=== PATIENT | female | born 1955 | race Caucasian/White ===

== ENCOUNTER 2017-03-25 15:41 | Inpatient (IN) | payer BC ==
[~2017-03-25] VITALS: Ht 154.9 cm; Wt 57.5 kg
[2017-03-25] MEDS ORDERED: ASPIRIN 81 MG TAB PO STA (19:04)
[2017-03-25] MEDS ORDERED: NITROGLYCERIN 2% 1 GM OINT PKT TD STA (19:04)
[2017-03-25 19:23] LABS: BASOPHILS % 0.7 % (0.0-2.0); EOSINOPHILS # 0.5 10^3/ul (0.0-0.5); EOSINOPHILS % 8.9 % (0.0-7.0); HEMATOCRIT 41.4 % (37.0-47.0); HEMOGLOBIN 13.8 g/dl (12.0-16.0); LYMPHOCYTES # 1.6 10^3/ul (0.8-2.9); LYMPHOCYTES % 29.6 % (15.0-51.0); MEAN CORPUSCULAR HEMOGLOBIN 28.3 pg (29.0-33.0); MEAN CORPUSCULAR HGB CONC 33.3 g/dl (32.0-37.0); MEAN PLATELET VOLUME 10.3 fl (7.4-10.4); MONOCYTE # 0.6 10^3/ul (0.3-0.9); MONOCYTES % 11.1 % (0.0-11.0); NEUTROPHIL # 2.7 10^3/ul (1.6-7.5); NEUTROPHILS % 49.5 % (39.0-77.0); PLATELET COUNT 278 10^3/UL (140-415); RED BLOOD COUNT 4.87 10^6/ul (4.20-5.40); RED CELL DISTRIBUTION WIDTH 12.7 % (11.5-14.5); WHITE BLOOD COUNT 5.4 10^3/ul (4.8-10.8)
--- NOTE | 2017-03-25 19:28 | RADRPT ---
PROCEDURE: Portable chest x-ray. CLINICAL INDICATION: Chest pain. TECHNIQUE: Portable AP view of the chest. COMPARISON: None. FINDINGS: No pulmonary edema or conolidation is identified. The cardiac silhouette is magnified. No pleural effusion is seen. There is no pneumothorax. IMPRESSION: 1. No evidence of acute cardiopulmonary disease. RPTAT: HTAR .Gerson Wiley MD, MD Date Time Electronically viewed and signed by .Gerson Wiley MD, on 03/25/2017 19:28 .R/
[2017-03-25] MEDS ORDERED: NITROGLYCERIN (SL) 0.4 MG TAB SL PRN ×2 (19:30→21:00)
[2017-03-25] MEDS ORDERED: CHOL100062 PO (19:37)
[2017-03-25] MEDS ORDERED: BENA20TA48 PO (19:37)
[2017-03-25] MEDS ORDERED: LEVO88TA3 PO (19:37)
[2017-03-25] MEDS ORDERED: HYDR-3010 PO (19:38)
[2017-03-25 19:41] LABS: CALCIUM 10.7 mg/dl (8.4-10.2); CREATININE 0.76 mg/dl (0.44-1.00); POTASSIUM 4.2 mmol/L (3.5-5.1)
[2017-03-25 19:55] LABS: TROPONIN-I 0.199 ng/ml (0.00-0.12)
[2017-03-25] MEDS ORDERED: ACETAMINOPHEN 325 MG TAB PO PRN ×2 (20:30→21:00)
[2017-03-25] MEDS ORDERED: ENOXAPARIN 40 MG/0.4 ML SYG SC ONE (20:30)
[2017-03-25] MEDS ORDERED: ONDANSETRON 4 MG INJ IV PRN ×2 (20:30→21:00)
[2017-03-25 21:00] VITALS: TEMP 97.4
[2017-03-25] MEDS ORDERED: MAGNESIUM HYDROXIDE 30ML CUP PO PRN (21:00)
[2017-03-25] MEDS ORDERED: DOCUSATE SODIUM 100 MG CAP PO PRN (21:00)
[2017-03-25] MEDS ORDERED: BISACODYL 10 MG SUPP PR PRN (21:00)
[2017-03-25] MEDS ORDERED: HYDROCODONE/APAP (5/325) TAB PO PRN ×2 (21:00)
[2017-03-25] MEDS ORDERED: morphine 2 MG INJ IV PRN (21:00)
[2017-03-25] MEDS ORDERED: hydrOXYzine HCL 10 MG TAB PO PRN (21:00)
[2017-03-25] MEDS ORDERED: NACL 0.9% 3 ML SYG IV SCH (21:00)
--- NOTE | 2017-03-25 21:08 | ERD ---
ER Documentation Chief Complaint Chief Complaint CHEST PAIN, ONSET 1 WEEK, SENT BY PMD FOR EVAL HPI Patient is a 61-year-old female with hypertension who presents with chest pain. The patient was sent by Dr. Diehl for chest pain and admission. The patient has had 1 week of shortness of breath with exertional chest pain. Dr. Diehl was concerned for acute coronary syndrome per his note. The patient has left- sided chest pain which is constant in nature. She says when she walks upstairs "the pressure is too hard" and she has to catch her breath. She has had no treatment yet today. ROS All systems reviewed and are negative except as per history of present illness. Medications Home Meds Reported Medications Hydroxyzine Hcl* (Hydroxyzine Hcl*) 10 Mg Tablet, 10 MG PO QHS Y for ITCHING, # 30 TAB 03/25/17 Cholecalciferol* (Vitamin D3*) 1,000 Unit Tablet, 1000 UNIT PO DAILY, TAB 03/25/17 Benazepril Hcl* (Benazepril Hcl*) 20 Mg Tablet, 20 MG PO DAILY, #30 TAB 03/25/17 Levothyroxine Sodium* (Levothyroxine Sodium*) 88 Mcg Tablet, 88 MCG PO BEFORE BREAKFAST, #30 TAB 03/25/17 Allergies Allergies: Coded Allergies: ibuprofen (Verified Allergy, Unknown, 03/25/17) PMhx/Soc Hx Neurological Disorder: No Hx Respiratory Disorders: No Hx Cardiac Disorders: Yes (htn, hyperlipidemia ) Hx Psychiatric Problems: No Hx Miscellaneous Medical Probl: No Hx Alcohol Use: No Hx Substance Use: No Hx Tobacco Use: Yes Smoking Status: Never smoker FmHx Family History: No coronary disease Physical Exam Vitals Vital Signs Date Time Temp Pulse Resp B/P Pulse Ox O2 Delivery O2 Flow Rate FiO2 03/25/17 19:28 98.4 89 19 136/82 98 Room Air 03/25/17 19:28 Nasal Cannula 03/25/17 15:46 98.4 67 17 160/89 98 Physical Exam Const: No acute distress Head: Atraumatic Eyes: Normal Conjunctiva ENT: Normal External Ears, Nose and Mouth. Neck: Full range of motion..~ No meningismus. Resp: Clear to auscultation bilaterally Cardio: Regular rate and rhythm, no murmurs Abd: Soft, non tender, non distended. Normal bowel sounds Skin: No petechiae or rashes Back: No midline or flank tenderness Ext: No cyanosis, or edema Neur: Awake and alert Psych: Normal Mood and Affect Result Diagram: 03/25/17191303/25/171913 Results 24 hrs Laboratory Tests Test 03/25/17 19:14 White Blood Count 5.410^3/ul Red Blood Count 4.8710^6/ul Hemoglobin 13.8g/dl Hematocrit 41.4% Mean Corpuscular Volume 85.0fl Mean Corpuscular Hemoglobin 28.3pg Mean Corpuscular Hemoglobin Concent 33.3g/dl Red Cell Distribution Width 12.7% Platelet Count 84428^3/UL Mean Platelet Volume 10.3fl Neutrophils % 49.5% Lymphocytes % 29.6% Monocytes % 11.1% Eosinophils % 8.9% Basophils % 0.7% Nucleated Red Blood Cells % 0.0/100WBC Neutrophils # 2.710^3/ul Lymphocytes # 1.610^3/ul Monocytes # 0.610^3/ul Eosinophils # 0.510^3/ul Basophils # 0.010^3/ul Nucleated Red Blood Cells # 0.010^3/ul Sodium Level 142mmol/L Potassium Level 4.2mmol/L Chloride Level 105mmol/L Carbon Dioxide Level 26mmol/L Anion Gap 15 Blood Urea Nitrogen 17mg/dl Creatinine 0.76mg/dl Glucose Level 114mg/dl Calcium Level 10.7mg/dl Troponin I 0.199ng/ml Current Medications Medications (Trade) Dose Ordered Sig/Aida Route PRN Reason Start Time Stop Time Status Last Admin Dose Admin Aspirin (Aspirin) 162 mg ONCE STAT PO 03/25/17 19:04 03/25/17 19:05 DC 03/25/17 19:42 Nitroglycerin (Nitroglycerin 2% Oint) 1 inch ONCE STAT TD 03/25/17 19:04 03/25/17 19:05 DC 03/25/17 19:44 Nitroglycerin (Nitroglycerin (Sl Tab) 0.4 Mg) 1 tab Q5M UP TO 3 DOSES PRN SL CHEST PAIN 03/25/17 19:30 03/25/17 20:40 DC 03/25/17 19:44 Enoxaparin Sodium (Lovenox) 60 mg ONCE ONCE SC 03/25/17 20:30 12/5/17 20:31 DC 03/25/17 20:24 Ondansetron HCl (Zofran Inj) 4 mg ER BRIDGE PRN IV NAUSEA AND/OR VOMITING 03/25/17 20:30 03/25/17 20:39 DC Acetaminophen (Tylenol Tab) 650 mg ER BRIDGE PRN PO MILD PAIN/FEVER 03/25/17 20:30 03/25/17 20:40 DC IV Flush (NS 3 ml) 3 ml PER PROTOCOL IV 03/25/17 21:00 Ondansetron HCl (Zofran Inj) 4 mg Q6H PRN IV NAUSEA AND/OR VOMITING 03/25/17 21:00 Aspirin (Aspirin) 81 mg DAILY PO 03/26/17 09:00 Nitroglycerin (Nitroglycerin (Sl Tab) 0.4 Mg) 1 tab Q5M PRN SL CHEST PAIN 03/25/17 21:00 Acetaminophen (Tylenol Tab) 650 mg Q6H PRN PO PAIN LEVEL 1-3 OR FEVER 03/25/17 21:00 Acetaminophen/ Hydrocodone Bitart ([place] (5/325)) 1 tab Q6H PRN PO PAIN LEVEL 4-6 03/25/17 21:00 Acetaminophen/ Hydrocodone Bitart ([place] (5/325)) 2 tab Q6H PRN PO PAIN LEVEL 7-10 03/25/17 21:00 Morphine Sulfate (morphine) 2 mg Q4H PRN IV PAIN LEVEL 7-10 03/25/17 21:00 Docusate Sodium (Colace) 100 mg Q12H PRN PO CONSTIPATION 03/25/17 21:00 Magnesium Hydroxide (Milk Of Mag) 30 ml DAILY PRN PO CONSTIPATION 03/25/17 21:00 Bisacodyl (Dulcolax Supp) 10 mg DAILY PRN [place] CONSTIPATION 03/25/17 21:00 Famotidine (Pepcid) 20 mg Q12 PO 03/25/17 21:00 Carvedilol (Coreg) 3.125 mg BID PO 03/25/17 21:00 Benazepril HCl (Lotensin) 20 mg DAILY PO 03/26/17 09:00 Hydroxyzine HCl (Atarax) 10 mg QHS PRN PO ITCHING 03/25/17 21:00 Levothyroxine Sodium (Synthroid) 88 mcg BEFORE BREAKFAST PO 03/26/17 07:00 Procedures/MDM EKG #1 read by me: Rate/Rhythm: Regular rate and rhythm at a normal rate Intervals: Normal Impression: No evidence of ischemia or arrhythmia EKG #2 read by me: Rate/Rhythm: Regular rate and rhythm at a normal rate Intervals: Normal Impression: No evidence of ischemia or arrhythmia Chest x-ray negative for pneumonia or pneumothorax per radiology. Smoking Cessation Therapy: Pt. was lectured for greater than 3 minutes on the health risks of continued smoking and the benefits of cessation. Patient is a 61-year-old female who presents with chest pain. She has hypertension and is an occasional smoker. Her troponin is positive showing an NSTEMI. 2 EKGs did not show STEMI. The patient was given aspirin, nitroglycerin, and Lovenox. I spoke with Dr. Tejada for admission as the patient has [employer] insurance. She will be admitted to a telemetry inpatient bed. Dr. Tejada plans to contact Dr. Tate from cardiology and the patient would likely benefit from a cardiac catheterization. At this point I doubt pneumonia, pneumothorax, pulmonary embolism, or aortic dissection. Critical Care: Time: 35 minutes excluding all billable procedures. Treatments/Evaluations: Close monitoring and treatment of unstable vital signs, cardiorespiratory, and neurologic status, while maintaining tight balance of fluid, respiratory, and cardiac interventions. Departure Diagnosis: Primary Impression: NSTEMI (non-ST elevated myocardial infarction) Additional Impression: Chest pain Chest pain type: unspecified Qualified Code: R07.9 - Chest pain, unspecified type Condition: Serious MICHAEL ALONZO MD Mar 25, 2017 21:08
[2017-03-25] MEDS: FAMOTIDINE 20 MG TAB PO SCH (22:08)
[2017-03-25 23:00] VITALS: BP 123/80; PULSE 57; RESP 16; Ht 154.9 cm; Wt 57.5 kg
[2017-03-26] VITALS (40 sets, daily range): BP systolic 104–149; BP diastolic 64–106; PULSE 51–81; RESP 11–28
[2017-03-26 01:44] LABS: D-DIMER 545.47 ng/ml (<460)
[2017-03-26 03:14] LABS: CK-MB 1.21 ng/ml (0.0-2.4); TROPONIN-I 0.206 ng/ml (0.00-0.12)
[2017-03-26] MEDS: LEVOTHYROXINE 88 MCG TAB PO SCH (08:24)
[2017-03-26] MEDS: BENAZEPRIL 20 MG TAB PO SCH (08:25)
[2017-03-26] MEDS: FAMOTIDINE 20 MG TAB PO SCH ×2 (08:25→20:35)
[2017-03-26] MEDS ORDERED: ASPIRIN 81 MG TAB PO SCH (09:00)
[2017-03-26 09:35] LABS: ALBUMIN 3.9 g/dl (3.3-4.9); ALBUMIN/GLOBULIN RATIO 1.08; BILIRUBIN,INDIRECT 0.5 mg/dl (0-1.1); BILIRUBIN,TOTAL 0.5 mg/dl (0.2-1.3); CALCIUM 9.9 mg/dl (8.4-10.2); CHOL/HDL RATIO 5.3 RATIO; CREATININE 0.79 mg/dl (0.44-1.00); MAGNESIUM 1.9 mg/dl (1.7-2.5); POTASSIUM 4.1 mmol/L (3.5-5.1); TOTAL PROTEIN 7.5 g/dl (6.1-8.1)
[2017-03-26 09:39] LABS: CK-MB 0.97 ng/ml (0.0-2.4)
[2017-03-26 09:40] LABS: TROPONIN-I 0.17 ng/ml (0.00-0.12)
[2017-03-26] MEDS: SOD CHLORIDE 0.9% 1,000 ML IV SCH ×2 (10:59→20:30)
--- NOTE | 2017-03-26 11:00 | HP ---
Date/Time of Note Date/Time of Note DATE: 03/26/17 TIME: 10:17 Assessment/Plan VTE Prophylaxis VTE Prophylaxis Intervention: SCD's Lines/Catheters IV Catheter Type [facility]from [facility]): [facility] Urinary Cath still in place: No Assessment/Plan Assessment/Plan 61-year-old female with: 1. Exertional chest pressure and shortness of breath, significant decreased exercise tolerance over a period of 2 weeks and much more acutely over the past week. Cardiac enzymes slightly elevated, echocardiogram done, results pending, cardiology consulted. Also d-dimer slightly elevated, CT angiogram chest pending. Further recommendations from cardiology depending on results from CT angiogram and echocardiogram Continue current medications 2. Hypertension: Continue current medications, patient already on ITZ inhibitors, carvedilol has been added. 3. Hypothyroidism: Thyroid function testing pending, continue Synthroid Prophylaxis: We will resume Lovenox for DVT prophylaxis depending on CT angiogram results, Pepcid for GI prophylaxis Disposition: CT angiogram chest, cardiology consult, possible cardiac angiogram later this afternoon depending on CT angiogram results. HPI/ROS Admit Date/Time Admit Date/Time Mar 25, 2017 at 20:18 Hx of Present Illness Chief complaint: Chest pain, dyspnea on exertion History of presenting illness: This is a 61-year-old female with previous history of hypothyroidism and hypertension, very active at baseline able to walk at least 4 blocks with no rest who over the past 2 weeks has been having increased fatigue, decreased exercise tolerance and now over the past week severe dyspnea and chest pressure with exertion. Patient reports that 2 weeks ago she started noticing increasing fatigue with long walks, at first she was not that concerned about it, however over the past week she has been having severe dyspnea on exertion and chest pressure after walking for half a block. She usually is able to easily walk 4 blocks at least. She denies any dizziness , nausea, vomiting, diaphoresis. She denies any previous history of cardiac disease. She denies any lower extremity edema or lower extremity cramping. Again she is very active at baseline. In the emergency room, she is found to have borderline elevated troponins, EKG with nonspecific changes. D-dimer slightly elevated above 500. I discussed the case with cardiology briefly, she did get a dose of Lovenox last night, were holding off for now, CT angiogram of the chest is pending. 2D echocardiogram has been done and depending on the echocardiogram findings and if CT angiogram is negative we may proceed with cardiac angiogram later this afternoon. Patient remains hemodynamically stable, blood pressure is controlled. ROS Constitutional: fatigue Eyes: no complaints ENT: no complaints Respiratory: other (Dyspnea on exertion) Cardiovascular: chest pain (Chest pressure with exertion), other (Dyspnea on exertion) Gastrointestinal: no complaints Genitourinary: no complaints Musculoskeletal: no complaints Skin: no complaints Neurologic: no complaints Endocrine: no complaints Lymphatic: no complaints PMH/Family/Social Past Medical History Hypertension Hypothyroidism Past Surgical History Status post hysterectomy 20 years ago Status post cataract surgery 2 years ago Family History Significant Family History: no pertinent family hx Social History Alcohol Use: none Smoking Status: Current some day smoker (She smokes approximately twice a year when in [place] and would smoke 2-3 cigarettes at that time.) Drug Use: none Exam/Review of Systems Vital Signs Vitals Vital Signs Date Time Temp Pulse Resp B/P Pulse Ox O2 Delivery O2 Flow Rate FiO2 03/26/17 08:10 56 03/26/17 08:10 Nasal Cannula 2.0 03/26/17 07:40 97.8 20 116/70 98 Exam Constitutional: alert, oriented, well developed Respiratory: clear to auscultation, normal air movement Cardiovascular: nl pulses, regular rate and rhythm Gastrointestinal: non-tender, soft Musculoskeletal: nl extremities to inspection Extremities: normal pulses, other (No edema, clubbing or cyanosis) Neurological: 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 intact, nl mental status, nl speech, nl strength Labs Result Diagram: 03/25/17191303/26/17 0810 Medications Medications Current Medications Ondansetron HCl (Zofran Inj) 4 mg Q6H PRN IV NAUSEA AND/OR VOMITING; Start 03/25/17 at 21:00 Aspirin (Aspirin) 81 mg DAILY PO ; Start 03/26/17 at 09:00 Nitroglycerin (Nitroglycerin (Sl Tab) 0.4 Mg) 1 tab Q5M PRN SL CHEST PAIN; Start 03/25/17 at 21:00 Acetaminophen (Tylenol Tab) 650 mg Q6H PRN PO PAIN LEVEL 1-3 OR FEVER; Start 03/25/17 at 21:00 Acetaminophen/ Hydrocodone Bitart ([place] (5/325)) 1 tab Q6H PRN PO PAIN LEVEL 4 -6; Start 03/25/17 at 21:00 Acetaminophen/ Hydrocodone Bitart ([place] (5/325)) 2 tab Q6H PRN PO PAIN LEVEL 7 -10; Start 03/25/17 at 21:00 Morphine Sulfate (morphine) 2 mg Q4H PRN IV PAIN LEVEL 7-10; Start 03/25/17 at 21:00 Docusate Sodium (Colace) 100 mg Q12H PRN PO CONSTIPATION; Start 03/25/17 at 21: 00 Magnesium Hydroxide (Milk Of Mag) 30 ml DAILY PRN PO CONSTIPATION; Start at 21:00 Bisacodyl (Dulcolax Supp) 10 mg DAILY PRN [place] CONSTIPATION; Start 03/25/17 at 21 :00 Famotidine (Pepcid) 20 mg Q12 PO Last administered on 03/26/17 08:25; Admin Dose 20 MG; Start 03/25/17 at 21:00 Carvedilol (Coreg) 3.125 mg BID PO ; Start 03/25/17 at 21:00 Benazepril HCl (Lotensin) 20 mg DAILY PO Last administered on 03/26/17 08:25; Admin Dose 20 MG; Start 03/26/17 at 09:00 Hydroxyzine HCl (Atarax) 10 mg QHS PRN PO ITCHING; Start 03/25/17 at 21:00 Procedures Procedures PROCEDURE: Portable chest x-ray. CLINICAL INDICATION: Chest pain. TECHNIQUE: Portable AP view of the chest. COMPARISON: None. FINDINGS: No pulmonary edema or conolidation is identified. The cardiac silhouette is magnified. No pleural effusion is seen. There is no pneumothorax. IMPRESSION: 1. No evidence of acute cardiopulmonary disease. RPTAT: HTAR .Gerson Wiley MD, MD Date Time Electronically viewed and signed by .Gerson Wiley MD, MD on 03/25/2017 19:28 EKG: Shows normal sinus rhythm, nonspecific ST abnormalities MADAN TYLER Mar 26, 2017 10:27
[2017-03-26] MEDS ORDERED: IOHEXOL 350MG/ML 50 ML BTL ONE (11:06)
[2017-03-26] MEDS ORDERED: SOD CHLORIDE 0.9% 100 ML ONE (11:06)
[2017-03-26] MEDS ORDERED: IOHEXOL 100 ML ONE (11:06)
--- NOTE | 2017-03-26 11:27 | RADRPT ---
Echocardiogram Report Patient Name: EDUARDO MCINTYRE Gender: Female Date: 1955 Study Date: 26-Mar-2017 Associate Professor Of Library Science: Scott Desai [facility] Location: 526 Ref. Physician: JOE TYLER Quality: Good Procedures: Transthoracic echocardiogram with complete 2D, M-Mode, and doppler examination. Indications: Elevated troponin. Chest Pain. 2D/M Mode Doppler Measurement Value Normal Ranges Measurement Value Normal Ranges LVIDd 2D 3.8 3.5 - 5.6 cm AV Peak Michael 1.7 m/sec LVIDs 2D 2.2 2.1 - 4.1 cm AV Peak PG 11.2 mmHg LVPWd 2D 0.9 0.6 - 1.1 cm LVOT Peak Michael 1.1 m/sec IVSd 2D 0.9 0.6 - 1.1 cm LVOT Peak PG 4.5 mmHg AoR Diam 2D 2.9 2.0 - 3.7 cm MV E Peak Michael 0.7 m/sec EDV 2D 62.4 cm3 MV A Peak Michael 0.9 m/sec ESV 2D 10.1 cm3 MV E/A 0.8 LA Dimen 2D 2.4 2.3 - 4.0 cm MV Decel Time 226 msec MV Decel [place] 3 MV E/A 0.8 Findings Left Ventricle: Normal left ventricular systolic function. Normal left ventricular cavity size. Normal left ventricular wall thickness. Ejection fraction is visually estimated at 60 %. Tissue Doppler/Mitral Doppler indices are consistent with impaired relaxation (Stage I diastolic dysfunction). Right Ventricle: Normal right ventricular size. Normal right ventricular systolic function. Left Atrium: The left atrium is normal in size. Right Atrium: The right atrium is normal in size. Mitral Valve: Mitral valve leaflets appear mildly thickened. Mild mitral annular calcification. Trace mitral regurgitation. Aortic Valve: Normal appearance of the aortic valve. No significant aortic stenosis or insufficiency. Tricuspid Valve: Normal appearance and function of the tricuspid valve with trace physiologic regurgitation. Pulmonic Valve: Pulmonic valve not well visualized. Pericardium: Normal pericardium with no significant pericardial effusion. Aorta: Normal aortic root. IVC: Normal size and normal respiratory collapse consistent with normal right atrial pressure. Conclusions Normal left ventricular systolic function. Normal left ventricular cavity size. Normal left ventricular wall thickness. Ejection fraction is visually estimated at 60 %. Tissue Doppler/Mitral Doppler indices are consistent with impaired relaxation (Stage I diastolic dysfunction). Normal right ventricular size. Normal right ventricular systolic function. The left atrium is normal in size. The right atrium is normal in size. No significant valvular stenosis or regurgitation seen. Normal pericardium with no significant pericardial effusion. Electronically Signed By: Ridge Tate 26-Mar-2017 11:26:26 -0800 Patient Name: EDUARDO MCINTYRE Study Date: 26-Mar-2017 [id number]
[2017-03-26] MEDS ORDERED: NITROGLYCERIN (IC) 100 MCG/ML INJ ONE (11:46)
[2017-03-26] MEDS ORDERED: VERAPAMIL 5 MG INJ ONE (11:46)
[2017-03-26] MEDS ORDERED: LIDOCAINE 1% (MDV) 20 ML INJ ONE (11:46)
[2017-03-26] MEDS ORDERED: MIDAZOLAM 1 MG/ML 2 ML INJ ONE (11:46)
[2017-03-26] MEDS ORDERED: FENTAnyl 50 MCG/ML VIAL ONE (11:46)
[2017-03-26] MEDS ORDERED: HEPARIN 1000 UNITS/ML 10 ML INJ ONE (11:47)
--- NOTE | 2017-03-26 12:07 | RADRPT ---
PROCEDURE: CTA Chest and pulmonary angiogram. CLINICAL INDICATION: Chest pain and shortness of breath. TECHNIQUE: CT scan of the chest and CT pulmonary angiogram was performed on a multidetector high-r esolution CT scanner. High-resolution thin slice coronal and sagittal imaging was obtained from the axial source images. 3-D volumetric rendered post processing was performed as well. The patient w as examined following the uncomplicated intravenous administration of 100 cc Omnipaque-300. The levi ges were reviewed on a PACS workstation. The total exam CTDI equals 35 mGy, and the total exam DLP e quals 301.5 mGy-cm. One or more of the following dose reduction techniques were used: Automated exposure control. Adjustment of the mA and/or kV according to patient size. Use of iterative reconstruction technique. DICOM images are available. COMPARISON: No priors for comparison FINDINGS: CT chest: The trachea is midline. The thyroid gland is unremarkable. No significant axillary lymphadenopathy. No significant mediastinal or hilar lymphadenopathy. The aorta is within normal limits. 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 The pulmonary arterial trunk is normal size. No evidence of acute pulmonary embo li. The heart size is mildly enlarged. There is no significant pericardial effusion. The lungs are clear. No focal air space disease/consolidation. Pleural effusions. Airways are patent . Mild emphysematous changes are noted. No significant pulmonary nodules. The visualized upper abdominal organs appear to be within normal limits. The visualized osseous structures demonstrate mild degenerative changes of the spine. IMPRESSION: 1. No evidence of acute pulmonary emboli. No evidence of aortic aneurysm or dissection. 2. The lungs are clear. No focal air space disease/consolidation. No evidence of pleural effusions. 3. Incidental identification of a aberrant right subclavian artery, which courses posterior to the e sophagus. Findings were discussed with Dr. Tate @ 12:04 PM on 03/26/17 RPTAT: AARR Physician Adam Date Time Electronically viewed and signed by Physician Adam on 03/26/2017 12:06 JL/
[2017-03-26] MEDS ORDERED: TICAGRELOR 90 MG TABLET ONE (13:26)
[2017-03-26] MEDS ORDERED: SOD CHLORIDE 0.9% 1,000 ML IV SCH (13:50)
[2017-03-26] MEDS ORDERED: BIVALIRUDIN 250MG /NS 50 ML 100 ML IVPB ONE (13:54)
--- NOTE | 2017-03-26 14:03 | OPR ---
Date/Time of Note Date/Time of Note DATE: 03/26/17 TIME: 13:52 Operative Report Procedure Date: Mar 26, 2017 Preoperative Diagnosis Myocardial infarction Postoperative Diagnosis Obstructive coronary artery disease Myocardial infarction Operation/Procedure Performed Left heart catheterization Right and left coronary angiogram Interpretation and supervision of right left coronary angiogram Left ventricular pressure measurements Complex PCI of the diagonal with bifurcation stenting of superior and inferior branch of diagonal 1 with 2.25 x 12 mm Synergy drug-eluting stents 2 with kissing balloon post dilation Conscious sedation Left radial artery approach Surgeon see signature line Recreational Leader None Anesthesia Type: other (Conscious sedation) Estimated Blood Loss: minimal Transfusion none Specimen None Grafts/Implants Synergy drug-eluting stents 2, both 2.25 x 12 mm size Complications none Procedure Description Findings Hemodynamics LV pressure 127/-14 with EDP of 5 Aortic pressure 126/67 Coronary findings Left main is a medium to large caliber vessel with no significant disease Circumflex is a small to medium caliber vessel with no significant disease LAD is a medium caliber vessel with proximal to mid 30% stenosis, distal 20% stenosis. First diagonal bifurcates into a superior and inferior branch. Superior branch is a medium caliber vessel with 99% stenosis from ostial to proximal, inferior branch with proximal 80% stenosis. RCA is a medium caliber vessel dominant with mid 20% stenosis and distal 30% stenosis Description of procedure Patient brought to the [facility] after informed consent. Left radial access was obtained and a 5/6 Haitian standard sheath was placed in left radial artery. Initially entire catheter was used but could not engage the coronaries well. We next switched to a 5 Haitian JL4 catheter engage left main and injury and was performed. We then used a 5 Haitian JR4 catheter engage the RCA and angiogram was performed. The left ventricle was entered and pressure measurements were obtained as well as pullback. Given the stenosis in the diagonal, we switched to a 6 Haitian XB LAD 4 guide and engaged left main. There was evidence of stenosis into branches of a medium caliber diagonal. Angiomax was used for anticoagulation. With moderate difficulty, we used to run through wires, one in the superior diagonal branch and one in the inferior diagonal branch. Of the superior diagonal branch, predilation was performed with a 2.0 balloon. There was still recoil post angioplasty. Given the bifurcation lesion, we opted to stent both branches. A 2.25 x 12 mm Synergy drug-eluting stent was taken in the superior diagonal branch and then a 2.25 x 12 mm Synergy drug- eluting stent in the inferior diagonal branch. The inferior diagonal branch stent was deployed and the STS system was removed. We next stented the superior branch, bringing the stent out of the ostium into the main diagonal. We next went back in with post dilation balloons and performed kissing balloon inflations at the proximal/ostial portions of both branches. There was an excellent angiographic result with ALLYSON-3 flow with no evidence of dissection. All catheters and wires removed. There is no immediate complications. This is a complex case with bifurcation stenting, multiple wires and balloon inflations as well as post kissing balloon dilations. Recommendations Dual antiplatelet therapy for minimum of 1 year to maintain stent patency. Ridge Tate DO Mar 26, 2017 14:03
--- NOTE | 2017-03-26 14:08 | CONS ---
Date/Time of Note Date/Time of Note DATE: 03/26/17 TIME: 14:04 Assessment/Plan Assessment/Plan Additional Assessment/Plan Non-ST elevation ND Obstructive coronary artery disease status post bifurcation stenting of the diagonal with drug-eluting stents Preserved ejection fraction Hypertension Tobacco use -Patient status post cardiac catheterization with severe stenosis in diagonal status post bifurcation stenting with 2 drug-eluting stents. Given patient with myocardial infarction as well as bifurcation setting, would continue on aspirin and Brilinta for minimum of 1 year to maintain stent patency, statin therapy as able to tolerate. Beta-naomy as heart rate and blood pressure permits. Consultation Date/Type/Reason Admit Date/Time Mar 25, 2017 at 20:18 Type of Consultation: cv Reason for Consultation Chest pain Hx of Present Illness This is a 61-year-old female who presents with off-and-on chest discomfort and shortness of breath over the past 2 weeks which is usually exacerbated by activity. Symptoms are chest pain and pressure associated with shortness of breath. No dizziness, palpitations or lightheadedness. Patient was sent to the emergency room by her primary physician. Troponins have been elevated and for this reason cardiology consultation was requested. At the current time, she denies any chest discomfort. She denies any cough, abdominal pain. 12 point review of systems was performed with all pertinent positives and negatives mentioned above and all else is negative Past Medical History Medical History: hypertension, hypothyroid Family History Significant Family History: no pertinent family hx Social History Alcohol Use: none Smoking Status: Current some day smoker (She smokes approximately twice a year when in [place] and would smoke 2-3 cigarettes at that time.) Drug Use: none Exam/Review of Systems Vital Signs Vitals Vital Signs Date Time Temp Pulse Resp B/P Pulse Ox O2 Delivery O2 Flow Rate FiO2 03/26/17 12:01 55 03/26/17 08:10 Nasal Cannula 2.0 03/26/17 07:40 97.8 20 116/70 98 Exam No apparent distress Constitutional: alert, oriented, well developed Head: normocephalic Respiratory: other (Coarse breath sounds bilaterally, no wheezing) Cardiovascular: other (S1-S2 heard), regular rate and rhythm Gastrointestinal: bowel sounds, non-tender, soft Extremities: other (No edema) Results Result Diagram: 03/25/17 19103/26/17 0827 Results 24 hrs Laboratory Tests Test 03/25/17:14 03/26/17 01:08 03/26/17 08:27 White Blood Count 5.4 Red Blood Count 4.87 Hemoglobin 13.8 Hematocrit 41.4 Mean Corpuscular Volume 85.0 Mean Corpuscular Hemoglobin 28.3 L Mean Corpuscular Hemoglobin Concent 33.3 Red Cell Distribution Width 12.7 Platelet Count 278 Mean Platelet Volume 10.3 Neutrophils % 49.5 Lymphocytes % 29.6 Monocytes % 11.1 H Eosinophils % 8.9 H Basophils % 0.7 Nucleated Red Blood Cells % 0.0 Neutrophils # 2.7 Lymphocytes # 1.6 Monocytes # 0.6 Eosinophils # 0.5 Basophils # 0.0 Nucleated Red Blood Cells # 0.0 Sodium Level 142 141 Potassium Level 4.2 4.1 Chloride Level 105 108 Carbon Dioxide Level 26 25 Anion Gap 15 12 Blood Urea Nitrogen 17 18 Creatinine 0.76 0.79 Glucose Level 114 107 Calcium Level 10.7 H 9.9 Troponin I 0.199 *H 0.206 *H 0.170 *H D-Dimer 545.47 H D-Dimer Comment Creatine Kinase 61 54 Creatine Kinase Index 2.0 1.8 Creatinine Kinase MB (Mass) 1.21 0.97 Magnesium Level 1.9 Total Bilirubin 0.5 Direct Bilirubin 0.00 Indirect Bilirubin 0.5 Aspartate Amino Transf (AST/SGOT) 28 Alanine Aminotransferase (ALT/SGPT) 40 Alkaline Phosphatase 78 Total Protein 7.5 Albumin 3.9 Globulin 3.60 H Albumin/Globulin Ratio 1.08 Triglycerides Level 176 H Cholesterol Level 204 H LDL Cholesterol, Calculated 131 HDL Cholesterol 38 Cholesterol/HDL Ratio 5.3 Thyroid Stimulating Hormone (TSH) 0.104 L Free Thyroxine 1.40 Medications Medications Current Medications Ondansetron HCl (Zofran Inj) 4 mg Q6H PRN IV NAUSEA AND/OR VOMITING; Start 03/25/17 at 21:00 Aspirin (Aspirin) 81 mg DAILY PO ; Start 03/26/17 at 09:00 Nitroglycerin (Nitroglycerin (Sl Tab) 0.4 Mg) 1 tab Q5M PRN SL CHEST PAIN; Start 03/25/17 at 21:00 Acetaminophen (Tylenol Tab) 650 mg Q6H PRN PO PAIN LEVEL 1-3 OR FEVER; Start 03/25/17 at 21:00 Acetaminophen/ Hydrocodone Bitart ([place] (5/325)) 1 tab Q6H PRN PO PAIN LEVEL 4 -6; Start 03/25/17 at 21:00 Acetaminophen/ Hydrocodone Bitart ([place] (5/325)) 2 tab Q6H PRN PO PAIN LEVEL 7 -10; Start 03/25/17 at 21:00 Morphine Sulfate (morphine) 2 mg Q4H PRN IV PAIN LEVEL 7-10; Start 03/25/17 at 21:00 Docusate Sodium (Colace) 100 mg Q12H PRN PO CONSTIPATION; Start 03/25/17 at 21: 00 Magnesium Hydroxide (Milk Of Mag) 30 ml DAILY PRN PO CONSTIPATION; Start at 21:00 Bisacodyl (Dulcolax Supp) 10 mg DAILY PRN [place] CONSTIPATION; Start 03/25/17 at 21 :00 Famotidine (Pepcid) 20 mg Q12 PO Last administered on 03/26/17 08:25; Admin Dose 20 MG; Start 03/25/17 at 21:00 Carvedilol (Coreg) 3.125 mg BID PO ; Start 03/25/17 at 21:00 Benazepril HCl (Lotensin) 20 mg DAILY PO Last administered on 03/26/17 08:25; Admin Dose 20 MG; Start 03/26/17 at 09:00 Hydroxyzine HCl 10 mg 10 mg QHS PRN PO ITCHING; Start 03/25/17 at 21:00 Sodium Chloride (NS) 1,000 ml @ 100 mls/hr Q10H IV Last administered on 10:59; Admin Dose 100 MLS/HR; Start 03/26/17 at 10:30 Procedures Procedures ECG demonstrates sinus rhythm, normal QRS duration, nonspecific ST abnormalities Ridge Tate DO Mar 26, 2017 14:08
[2017-03-26] MEDS ORDERED: ATORVASTATIN 80 MG TAB PO ONE (14:30)
[2017-03-26] MEDS: BIVALIRUDIN 250MG /NS 50 ML 50 ML IV SCH ×2 (17:12→20:40)
[2017-03-26] MEDS: TICAGRELOR 90 MG TABLET PO SCH (20:34)
[2017-03-27] VITALS (18 sets, daily range): BP systolic 91–120; BP diastolic 59–85; PULSE 57–90; RESP 10–22
[2017-03-27] MEDS: SOD CHLORIDE 0.9% 1,000 ML IV SCH (01:22)
[2017-03-27 06:02] LABS: BASOPHILS % 0.7 % (0.0-2.0); EOSINOPHILS # 0.3 10^3/ul (0.0-0.5); HEMATOCRIT 37.1 % (37.0-47.0); HEMOGLOBIN 12.3 g/dl (12.0-16.0); LYMPHOCYTES # 1.1 10^3/ul (0.8-2.9); LYMPHOCYTES % 17.9 % (15.0-51.0); MEAN CORPUSCULAR HEMOGLOBIN 28.1 pg (29.0-33.0); MEAN CORPUSCULAR HGB CONC 33.2 g/dl (32.0-37.0); MEAN CORPUSCULAR VOLUME 84.9 fl (82.0-101.0); MEAN PLATELET VOLUME 10.9 fl (7.4-10.4); MONOCYTE # 0.7 10^3/ul (0.3-0.9); MONOCYTES % 11.2 % (0.0-11.0); NEUTROPHIL # 3.9 10^3/ul (1.6-7.5); PLATELET COUNT 255 10^3/UL (140-415); RED BLOOD COUNT 4.37 10^6/ul (4.20-5.40); RED CELL DISTRIBUTION WIDTH 12.7 % (11.5-14.5)
[2017-03-27] MEDS: LEVOTHYROXINE 88 MCG TAB PO SCH (06:24)
[2017-03-27 06:30] LABS: CALCIUM 9.5 mg/dl (8.4-10.2); CREATININE 0.85 mg/dl (0.44-1.00); POTASSIUM 4.4 mmol/L (3.5-5.1)
[2017-03-27] MEDS: FAMOTIDINE 20 MG TAB PO SCH (08:41)
[2017-03-27] MEDS: BENAZEPRIL 20 MG TAB PO SCH (08:43)
[2017-03-27] MEDS: TICAGRELOR 90 MG TABLET PO SCH (08:46)
[2017-03-27] MEDS ORDERED: ASPIRIN (EC) 81 MG TAB PO SCH (09:00)
--- NOTE | 2017-03-27 10:09 | PN ---
Date/Time of Note Date/Time of Note DATE: 03/27/17 TIME: 09:49 Assessment/Plan VTE Prophylaxis VTE Prophylaxis Intervention: SCD's Lines/Catheters IV Catheter Type (from Nrs): Peripheral IV Urinary Cath still in place: No Assessment/Plan Assessment/Plan 61-year-old female with: 1. CAD, s/p angio yesterday and PCI of diagonal with 2 stents placed Denies chest pressure or shortness of breath this AM No arrhythmia reported on Tele If Ok with Cardio, planning to d/c home today with outpatient follow up with cardiology Echocardiogram wnl No BB currently due to mild bradycardia 2. Hypertension: Continue current medications. 3. Hypothyroidism: Thyroid function wnl, continue Synthroid. Prophylaxis: SCDs for DVT ppx, Pepcid for GI prophylaxis Disposition: D/c home today if OK with Cardiology and follow up with PCP and Cardiology outpatient. Subjective 24 Hr Interval Summary Free Text/Dictation Patient with no complaints this AM No chest pain and no arrhythmias overnight Exam/Review of Systems Vital Signs Vitals Vital Signs Date Time Temp Pulse Resp B/P Pulse Ox O2 Delivery O2 Flow Rate FiO2 03/27/17 06:00 58 16 113/61 98 Room Air 03/27/17 04:00 98.6 03/26/17 08:10 2.0 Intake and Output 03/26/17 03/26/17 03/27/17 14:59 22:59 06:59 Intake Total 270 ml 60 ml Output Total 400 ml Balance -130 ml 60 ml Exam Constitutional: alert, oriented, well developed Respiratory: clear to auscultation, normal air movement Cardiovascular: nl pulses, regular rate and rhythm Gastrointestinal: non-tender, soft Musculoskeletal: nl extremities to inspection, nl gait and stance Extremities: normal pulses, other (no edema, clubbing or cyanosis ) Neurological: BEVERAGE SERVER II-XII intact, nl mental status, nl speech, nl strength Results Result Diagram: 03/27/1751103/27/17511 Results 24 hrs Laboratory Tests Test 03/27/17 05:12 White Blood Count 6.0 Red Blood Count 4.37 Hemoglobin 12.3 Hematocrit 37.1 Mean Corpuscular Volume 84.9 Mean Corpuscular Hemoglobin 28.1 L Mean Corpuscular Hemoglobin Concent 33.2 Red Cell Distribution Width 12.7 Platelet Count 255 Mean Platelet Volume 10.9 H Neutrophils % 65.0 Lymphocytes % 17.9 Monocytes % 11.2 H Eosinophils % 5.0 Basophils % 0.7 Nucleated Red Blood Cells % 0.0 Neutrophils # 3.9 Lymphocytes # 1.1 Monocytes # 0.7 Eosinophils # 0.3 Basophils # 0.0 Nucleated Red Blood Cells # 0.0 Sodium Level 142 Potassium Level 4.4 Chloride Level 106 Carbon Dioxide Level 28 Anion Gap 12 Blood Urea Nitrogen 14 Creatinine 0.85 Glucose Level 99 Calcium Level 9.5 Magnesium Level 1.9 Medications Medications Current Medications Ondansetron HCl (Zofran Inj) 4 mg Q6H PRN IV NAUSEA AND/OR VOMITING Last administered on 03/26/17 19:20; Admin Dose 4 MG; Start 03/25/17 at 21:00 Aspirin (Aspirin) 81 mg DAILY PO ; Start 03/26/17 at 09:00 Nitroglycerin (Nitroglycerin (Sl Tab) 0.4 Mg) 1 tab Q5M PRN SL CHEST PAIN; Start 03/25/17 at 21:00 Acetaminophen (Tylenol Tab) 650 mg Q6H PRN PO PAIN LEVEL 1-3 OR FEVER; Start 03/25/17 at 21:00 Acetaminophen/ Hydrocodone Bitart ([place] (5/325)) 1 tab Q6H PRN PO PAIN LEVEL 4 -6 Last administered on 03/26/17 17:01; Admin Dose 1 TAB; Start 03/25/17 at 21: 00 Acetaminophen/ Hydrocodone Bitart ([place] (5/325)) 2 tab Q6H PRN PO PAIN LEVEL 7 -10; Start 03/25/17 at 21:00 Morphine Sulfate (morphine) 2 mg Q4H PRN IV PAIN LEVEL 7-10; Start 03/25/17 at 21:00 Docusate Sodium (Colace) 100 mg Q12H PRN PO CONSTIPATION; Start 03/25/17 at 21: 00 Magnesium Hydroxide (Milk Of Mag) 30 ml DAILY PRN PO CONSTIPATION; Start at 21:00 Bisacodyl (Dulcolax Supp) 10 mg DAILY PRN [place] CONSTIPATION; Start 03/25/17 at 21 :00 Famotidine (Pepcid) 20 mg Q12 PO Last administered on 03/27/17 08:41; Admin Dose 20 MG; Start 03/25/17 at 21:00 Carvedilol (Coreg) 3.125 mg BID PO Last administered on 03/27/17 08:42; Admin Dose 3.125 MG; Start 03/25/17 at 21:00 Benazepril HCl (Lotensin) 20 mg DAILY PO Last administered on 03/27/17 08:43; Admin Dose 20 MG; Start 03/26/17 at 09:00 Hydroxyzine HCl 10 mg 10 mg QHS PRN PO ITCHING; Start 03/25/17 at 21:00 Sodium Chloride (NS) 1,000 ml @ 100 mls/hr Q10H IV Last administered on 10:59; Admin Dose 100 MLS/HR; Start 03/26/17 at 10:30 Miscellaneous Information (* Miscellaneous Pharmacy Order) Hold all Metformin ... ONCE XX ; Start 03/26/17 at 14:00; Stop 03/28/17 at 13:59 Aspirin (Halfprin) 81 mg DAILY PO Last administered on 03/27/17 08:41; Admin Dose 81 MG; Start 03/27/17 at 09:00 Ticagrelor (Brilinta) 90 mg BID PO Last administered on 03/27/17 08:46; Admin Dose 90 MG; Start 03/26/17 at 21:00 Atorvastatin Calcium (Lipitor) 80 mg HS PO ; Start 03/27/17 at 21:00 Procedures Procedures Echocardiogram Report Patient Name: EDUARDO MCINTYRE Gender: Female Date: 1955 Study Date: 26-Mar-2017 Charge Account Clerk: Scott Desai RDCS Location: [id number] Ref. Physician: JOE TYLER Quality: Good Procedures: Transthoracic echocardiogram with complete 2D, M-Mode, and doppler examination. Indications: Elevated troponin. Chest Pain. 2D/M Mode Doppler Measurement Value Normal Ranges Measurement Value Normal Ranges LVIDd 2D 3.8 3.5 - 5.6 cm AV Peak Michael 1.7 m/sec LVIDs 2D 2.2 2.1 - 4.1 cm AV Peak PG 11.2 mmHg LVPWd 2D 0.9 0.6 - 1.1 cm LVOT Peak Michael 1.1 m/sec IVSd 2D 0.9 0.6 - 1.1 cm LVOT Peak PG 4.5 mmHg AoR Diam 2D 2.9 2.0 - 3.7 cm MV E Peak Michael 0.7 m/sec EDV 2D 62.4 cm3 MV A Peak Michael 0.9 m/sec ESV 2D 10.1 cm3 MV E/A 0.8 LA Dimen 2D 2.4 2.3 - 4.0 cm MV Decel Time 226 msec MV Decel [place] 3 MV E/A 0.8 Findings Left Ventricle: Normal left ventricular systolic function. Normal left ventricular cavity size. Normal left ventricular wall thickness. Ejection fraction is visually estimated at 60 %. Tissue Doppler/Mitral Doppler indices are consistent with impaired relaxation (Stage I diastolic dysfunction). Right Ventricle: Normal right ventricular size. Normal right ventricular systolic function. Left Atrium: The left atrium is normal in size. Right Atrium: The right atrium is normal in size. Mitral Valve: Mitral valve leaflets appear mildly thickened. Mild mitral annular calcification. Trace mitral regurgitation. Aortic Valve: Normal appearance of the aortic valve. No significant aortic stenosis or insufficiency. Tricuspid Valve: Normal appearance and function of the tricuspid valve with trace physiologic regurgitation. Pulmonic Valve: Pulmonic valve not well visualized. Pericardium: Normal pericardium with no significant pericardial effusion. Aorta: Normal aortic root. IVC: Normal size and normal respiratory collapse consistent with normal right atrial pressure. Conclusions Normal left ventricular systolic function. Normal left ventricular cavity size. Normal left ventricular wall thickness. Ejection fraction is visually estimated at 60 %. Tissue Doppler/Mitral Doppler indices are consistent with impaired relaxation (Stage I diastolic dysfunction). Normal right ventricular size. Normal right ventricular systolic function. The left atrium is normal in size. The right atrium is normal in size. No significant valvular stenosis or regurgitation seen. Normal pericardium with no significant pericardial effusion. Electronically Signed By: Ridge Tate 26-Mar-2017 11:26:26 -0800 MADAN TYLER Mar 27, 2017 10:03
--- NOTE | 2017-03-27 10:11 | PDOCDIS ---
Discharge Instructions CONDITION Patient Condition: Stable HOME CARE INSTRUCTIONS: Diet Instructions: Low Fat /CholesterolSpecial Diet: Cardiac Diet ACTIVITY: Activity Restrictions: No Restrictions FOLLOW UP/APPOINTMENTS Follow-up Plan Follow up with PCP within 1 week Follow up with Cardiology in 1 to 2 weeks SCHOOL/WORK RELEASE May return to School/Work on: Apr 15, 2017 MADAN TYLER Mar 27, 2017 10:11
[2017-03-27] MEDS ORDERED: TICA90TA PO (10:13)
[2017-03-27] MEDS ORDERED: CARV3.1260 PO (10:13)
[2017-03-27] MEDS ORDERED: ASPI-664 PO (10:13)
[2017-03-27] MEDS ORDERED: ATOR80TA75 PO (10:13)
--- NOTE | 2017-03-27 11:28 | CONS ---
Date/Time of Note Date/Time of Note DATE: 03/27/17 TIME: 11:25 Assessment/Plan Assessment/Plan Additional Assessment/Plan Non-ST elevation ND Obstructive coronary artery disease status post bifurcation stenting of the diagonal with drug-eluting stents Preserved ejection fraction Hypertension Tobacco use -Patient status post cardiac catheterization with severe stenosis in diagonal status post bifurcation stenting with 2 drug-eluting stents. Given patient with myocardial infarction as well as bifurcation setting, would continue on aspirin and Brilinta for minimum of 1 year to maintain stent patency. Patient cannot be discharged home until Brilinta approved and confirmed available at pharmacy. Statin therapy as able to tolerate. Blood pressure on the lower end , given preserved ejection fraction, change Coreg to metoprolol and continue as tolerated, decreased dose of ITZ inhibitor. Patient to ambulate today if remains asymptomatic, DC planning Consultation Date/Type/Reason Admit Date/Time Mar 25, 2017 at 20:18 Initial Consult Date Type of Consultation: cv 24 HR Interval Summary Free Text/Dictation Patient denies any chest pain, shortness of breath or palpitations. Feeling much better after PCI Exam/Review of Systems Vital Signs Vitals Vital Signs Date Time Temp Pulse Resp B/P Pulse Ox O2 Delivery O2 Flow Rate FiO2 03/27/17 08:00 65 03/27/17 06:00 16 113/61 98 Room Air 03/27/17 04:00 98.6 03/26/17 08:10 2.0 Intake and Output 03/26/17 03/26/17 03/27/17 14:59 22:59 06:59 Intake Total 270 ml 60 ml Output Total 400 ml Balance -130 ml 60 ml Exam No apparent distress Constitutional: alert, oriented, well developed Head: normocephalic Respiratory: clear to auscultation, normal air movement Cardiovascular: other (S1-S2 heard), regular rate and rhythm Gastrointestinal: bowel sounds, non-tender, soft Extremities: other (No lower extremity edema, left upper extremity wrist with + 2 radial pulse, mild ecchymosis) Results Result Diagram: 03/27/17 0512 03/27/17 0512 Results 24 hrs Laboratory Tests Test 03/27/17 05:12 White Blood Count 6.0 Red Blood Count 4.37 Hemoglobin 12.3 Hematocrit 37.1 Mean Corpuscular Volume 84.9 Mean Corpuscular Hemoglobin 28.1 L Mean Corpuscular Hemoglobin Concent 33.2 Red Cell Distribution Width 12.7 Platelet Count 255 Mean Platelet Volume 10.9 H Neutrophils % 65.0 Lymphocytes % 17.9 Monocytes % 11.2 H Eosinophils % 5.0 Basophils % 0.7 Nucleated Red Blood Cells % 0.0 Neutrophils # 3.9 Lymphocytes # 1.1 Monocytes # 0.7 Eosinophils # 0.3 Basophils # 0.0 Nucleated Red Blood Cells # 0.0 Sodium Level 142 Potassium Level 4.4 Chloride Level 106 Carbon Dioxide Level 28 Anion Gap 12 Blood Urea Nitrogen 14 Creatinine 0.85 Glucose Level 99 Calcium Level 9.5 Magnesium Level 1.9 Medications Medications Current Medications Ondansetron HCl (Zofran Inj) 4 mg Q6H PRN IV NAUSEA AND/OR VOMITING Last administered on 03/26/17 19:20; Admin Dose 4 MG; Start 03/25/17 at 21:00 Nitroglycerin (Nitroglycerin (Sl Tab) 0.4 Mg) 1 tab Q5M PRN SL CHEST PAIN; Start 03/25/17 at 21:00 Acetaminophen (Tylenol Tab) 650 mg Q6H PRN PO PAIN LEVEL 1-3 OR FEVER; Start 03/25/17 at 21:00 Acetaminophen/ Hydrocodone Bitart ([place] (5/325)) 1 tab Q6H PRN PO PAIN LEVEL 4 -6 Last administered on 03/26/17 17:01; Admin Dose 1 TAB; Start 03/25/17 at 21: 00 Acetaminophen/ Hydrocodone Bitart ([place] (5/325)) 2 tab Q6H PRN PO PAIN LEVEL 7 -10; Start 03/25/17 at 21:00 Morphine Sulfate (morphine) 2 mg Q4H PRN IV PAIN LEVEL 7-10; Start 03/25/17 at 21:00 Docusate Sodium (Colace) 100 mg Q12H PRN PO CONSTIPATION; Start 03/25/17 at 21: 00 Magnesium Hydroxide (Milk Of Mag) 30 ml DAILY PRN PO CONSTIPATION; Start at 21:00 Bisacodyl (Dulcolax Supp) 10 mg DAILY PRN [place] CONSTIPATION; Start 03/25/17 at 21 :00 Famotidine (Pepcid) 20 mg Q12 PO Last administered on 03/27/17 08:41; Admin Dose 20 MG; Start 03/25/17 at 21:00 Hydroxyzine HCl (Atarax) 10 mg QHS PRN PO ITCHING; Start 03/25/17 at 21:00 Miscellaneous Information (* Miscellaneous Pharmacy Order) Hold all Metformin ... ONCE XX ; Start 03/26/17 at 14:00; Stop 03/28/17 at 13:59 Aspirin (Halfprin) 81 mg DAILY PO Last administered on 03/27/17 08:41; Admin Dose 81 MG; Start 03/27/17 at 09:00 Ticagrelor (Brilinta) 90 mg BID PO Last administered on 03/27/17 08:46; Admin Dose 90 MG; Start 03/26/17 at 21:00 Atorvastatin Calcium (Lipitor) 80 mg HS PO ; Start 03/27/17 at 21:00 Benazepril HCl (Lotensin) 10 mg DAILY PO ; Start 03/28/17 at 09:00; Status UNV Metoprolol Succinate (Toprol Xl) 25 mg DAILY PO ; Start 03/28/17 at 09:00; Status UNV Ridge Tate DO Mar 27, 2017 11:28
--- NOTE | 2017-03-27 13:16 | RADRPT ---
Vent Rate: 58 bpm RR Interval: 0 msec [place] Interval: 162 msec QRS Duration: 74 msec QT Interval: 428 msec QTC Interval: 420 msec P-R-T [place]: 63 - 89 - [address] abnormality, possible digitalis effect Abnormal ECG Electronically Signed By: Gigi Hanks [id number]
--- NOTE | 2017-03-27 13:17 | RADRPT ---
Vent Rate: 60 bpm RR Interval: 0 msec NM Interval: 166 msec QRS Duration: 72 msec QT Interval: 418 msec QTC Interval: 418 msec P-R-T [place]: 62 - 90 - 106 degrees Normal sinus rhythm Rightward axis Nonspecific ST abnormality Abnormal ECG Electronically Signed By: Gigi Hanks [id number]
--- NOTE | 2017-03-27 16:22 | DS ---
Date/Time of Note Date/Time of Note DATE: 03/27/17 TIME: 16:17 Discharge Summary Admission/Discharge Info Admit Date/Time Mar 25, 2017 at 20:18 Discharge Date/Time 03/27/17 Discharge Diagnosis 1. NSTEMI, s/p angio yesterday and PCI of diagonal with 2 stents placed 2. Coronary artery disease 3. Hypertension 4. Hypothyroidism Patient Condition: Stable Consults Dr. Tate, cardiology Procedures PCI with stent placement 2 to diagonal Hx of Present Illness Chief complaint: Chest pain, dyspnea on exertion History of presenting illness: This is a 61-year-old female with previous history of hypothyroidism and hypertension, very active at baseline able to walk at least 4 blocks with no rest who over the past 2 weeks has been having increased fatigue, decreased exercise tolerance and now over the past week severe dyspnea and chest pressure with exertion. Patient reports that 2 weeks ago she started noticing increasing fatigue with long walks, at first she was not that concerned about it, however over the past week she has been having severe dyspnea on exertion and chest pressure after walking for half a block. She usually is able to easily walk 4 blocks at least. She denies any dizziness , nausea, vomiting, diaphoresis. She denies any previous history of cardiac disease. She denies any lower extremity edema or lower extremity cramping. Again she is very active at baseline. In the emergency room, she is found to have borderline elevated troponins, EKG with nonspecific changes. D-dimer slightly elevated above 500. I discussed the case with cardiology briefly, she did get a dose of Lovenox last night, were holding off for now, CT angiogram of the chest is pending. 2D echocardiogram has been done and depending on the echocardiogram findings and if CT angiogram is negative we may proceed with cardiac angiogram later this afternoon. Patient remains hemodynamically stable, blood pressure is controlled. Hospital Course Patient had a slightly elevated d-dimer along with a slightly elevated troponin on admission, CT angiogram of the chest negative for acute PE. She was therefore taken to the [facility] and had PCI with stent placement to the diagonal , 2 drug-eluting stents were placed. Patient was transferred to the intensive care unit postprocedure, she did well overnight, no arrhythmias, blood pressure is stable, she is tolerating blood pressure medications and carvedilol. She is discharged home today on Brilinta, patient has been provided with a coupon and also after checking with her insurance, Brilinta is covered with the co-pay. She is to follow-up with cardiology as an outpatient and also her primary care physician. Home Meds Active Scripts Aspirin* (Aspirin* EC) 81 Mg Tablet.dr, 81 MG PO DAILY for 30 Days, 3 Refills OTC Prov:MADAN TYLER 03/27/17 Atorvastatin* (Atorvastatin*) 80 Mg Tablet, 80 MG PO HS for 30 Days, TAB 3 Refills Prov:MADAN TYLER 03/27/17 Carvedilol* (Carvedilol*) 3.125 Mg Tablet, 3.125 MG PO BID for 30 Days, TAB 3 Refills Prov:MADAN TYLER 03/27/17 Ticagrelor* (Brilinta*) 90 Mg Tablet, 90 MG PO BID for 30 Days, TAB 11 Refills Prov:MADAN TYLER 03/27/17 Reported Medications Hydroxyzine Hcl* (Hydroxyzine Hcl*) 10 Mg Tablet, 10 MG PO QHS Y for ITCHING, # 30 TAB 03/25/17 Cholecalciferol* (Vitamin D3*) 1,000 Unit Tablet, 1000 UNIT PO DAILY, TAB 03/25/17 Benazepril Hcl* (Benazepril Hcl*) 20 Mg Tablet, 20 MG PO DAILY, #30 TAB 03/25/17 Levothyroxine Sodium* (Levothyroxine Sodium*) 88 Mcg Tablet, 88 MCG PO BEFORE BREAKFAST, #30 TAB 03/25/17 Follow-up Plan Follow up with PCP within 1 week Follow up with Cardiology in 1 to 2 weeks Primary Care Provider Tony Diehl MD Time spent on discharge: > 30 minutes Pending Labs Laboratory Tests Test 03/27/17 05:12 White Blood Count 6.010^3/ul (4.8-10.8) Red Blood Count 4.3710^6/ul (4.20-5.40) Hemoglobin 12.3g/dl (12.0-16.0) Hematocrit 37.1% (37.0-47.0) Mean Corpuscular Volume 84.9fl (82.0-101.0) Mean Corpuscular Hemoglobin 28.1pg (29.0-33.0) Mean Corpuscular Hemoglobin Concent 33.2g/dl (32.0-37.0) Red Cell Distribution Width 12.7% (11.5-14.5) Platelet Count 98911^3/UL (140-415) Mean Platelet Volume 10.9fl (7.4-10.4) Neutrophils % 65.0% (39.0-77.0) Lymphocytes % 17.9% (15.0-51.0) Monocytes % 11.2% (0.0-11.0) Eosinophils % 5.0% (0.0-7.0) Basophils % 0.7% (0.0-2.0) Nucleated Red Blood Cells % 0.0/100WBC (0.0-0.0) Neutrophils # 3.910^3/ul (1.6-7.5) Lymphocytes # 1.110^3/ul (0.8-2.9) Monocytes # 0.710^3/ul (0.3-0.9) Eosinophils # 0.310^3/ul (0.0-0.5) Basophils # 0.010^3/ul (0.0-0.1) Nucleated Red Blood Cells # 0.010^3/ul (0.0-0.0) Sodium Level 142mmol/L (135-144) Potassium Level 4.4mmol/L (3.5-5.1) Chloride Level 106mmol/L (97-110) Carbon Dioxide Level 28mmol/L (21-31) Anion Gap 12 (8-16) Blood Urea Nitrogen 14mg/dl (7-20) Creatinine 0.85mg/dl (0.44-1.00) Glucose Level 99mg/dl (70-220) Calcium Level 9.5mg/dl (8.4-10.2) Magnesium Level 1.9mg/dl (1.7-2.5) MADAN TYLER Mar 27, 2017 16:22
[2017-03-27] MEDS ORDERED: ATORVASTATIN 80 MG TAB PO SCH (21:00)
[2017-03-28] MEDS ORDERED: METOPROLOL (XL) 25 MG TAB PO SCH (09:00)
[2017-03-28] MEDS ORDERED: BENAZEPRIL 10 MG TAB PO SCH (09:00)
== END 2017-03-27 15:55 | disposition home or self-care (01) | DRG 247 ==
LOC: E/R 15:41 → MS3 20:18 → TEL 03-26 00:18 → ICU/TEL-OV 03-26 14:37 → ICU 03-26 18:19
PROVIDERS: ADMIT Internal Medicine; ATTEND Internal Medicine
PROC: B215YZZ Fluoroscopy of Left Heart using Other Contrast (ICD-10-PCS; 2017-03-26)
PROC: 0270356 Dilation of Coronary Artery, One Artery, Bifurcation, with Two Drug-eluting Intraluminal Devices, Percutaneous Approach (ICD-10-PCS; principal; 2017-03-26 12:00)
PROC: 4A023N7 Measurement of Cardiac Sampling and Pressure, Left Heart, Percutaneous Approach (ICD-10-PCS; 2017-03-26 12:00)
PROC: B211YZZ Fluoroscopy of Multiple Coronary Arteries using Other Contrast (ICD-10-PCS; 2017-03-26 12:00)
DX: I21.4 Non-ST elevation (NSTEMI) myocardial infarction (principal); I10 Essential (primary) hypertension; I25.119 Atherosclerotic heart disease of native coronary artery with unspecified angina pectoris; E78.5 Hyperlipidemia, unspecified; E03.9 Hypothyroidism, unspecified; Z72.0 Tobacco use; Z79.02 Long term (current) use of antithrombotics/antiplatelets; Z79.82 Long term (current) use of aspirin; Z90.710 Acquired absence of both cervix and uterus; Z98.49 Cataract extraction status, unspecified eye
CPT/HCPCS: 36415; 71010; 71275; 80048; 80053; 80061; 82550; 82553; 83735; 84439; 84443; 84484; 85025; 85378; 93005; 93306; 93458; 96372; C1725; C1874; C1887; C9600; C9601; J0583; J1644; J1650; J2250; J2270; J2405; J3010; J7030; Q9967

== ENCOUNTER 2017-04-12 12:53 | Emergency (ER) | payer BC ==
[~2017-04-12] VITALS: Ht 142.2 cm; Wt 57.0 kg
[~2017-04-12 12:53] MED LIST: ASPI-664 PO; ATOR80TA75 PO; BENA20TA48 PO; CARV3.1260 PO; CHOL100062 PO; HYDR-3010 PO; LEVO88TA3 PO; TICA90TA PO
[2017-04-12 12:54] VITALS: Ht 142.2 cm; Wt 57.0 kg
[2017-04-12] MEDS ORDERED: FAMOTIDINE 20 MG TAB PO ONE (14:30)
[2017-04-12] MEDS ORDERED: METHYLPREDNISOLONE 125 MG INJ IM ONE (14:30)
[2017-04-12] MEDS ORDERED: DIPHENHYDRAMINE 50 MG INJ IM ONE (14:30)
[2017-04-12] MEDS ORDERED: FAMO-96 PO (15:14)
[2017-04-12] MEDS ORDERED: PRED20TA PO (15:14)
[2017-04-12] MEDS ORDERED: BEN25 PO (15:14)
--- NOTE | 2017-04-12 15:26 | ERD ---
ER Documentation Chief Complaint Chief Complaint rash throughout body x 2 days ago HPI This is a 61-year-old female who presents the emergency department today complaining of a rash throughout her body for the past couple of days. Denies any new foods or detergents. States that she was seen here a couple of weeks ago and was given medications for her heart. States that she saw her nonfarm animal caretaker yesterday and she stopped taking the atorvastatin and one other medication because they were concerned that may be causing the rash. States she is now taking clopidogrel, aspirin, carvedilol benazepril levothyroxine and patient has also been taking hydroxyzine in the past she has been itching on her head. She denies any shortness of breath, difficulty breathing or swallowing. ROS All systems reviewed and are negative except as per history of present illness. Medications Home Meds Active Scripts Famotidine* (Pepcid*) 20 Mg Tablet, 20 MG PO BID for 10 Days, TAB Prov:ROZINA ARTEAGA PA-C 04/12/17 Diphenhydramine Hcl* (Benadryl*) 25 Mg Cap, 25 MG PO Q6, #30 CAP Prov:ROZINA ARTEAGA PA-C 04/12/17 Prednisone* (Prednisone*) 20 Mg Tab, 40 MG PO DAILY for 5 Days, TAB Prov:ROZINA ARTEAGA PA-C 04/12/17 Aspirin* (Aspirin* EC) 81 Mg Tablet.dr, 81 MG PO DAILY for 30 Days, 3 Refills OTC Prov:MADAN TYLER 03/27/17 Atorvastatin* (Atorvastatin*) 80 Mg Tablet, 80 MG PO HS for 30 Days, TAB 3 Refills Prov:MADAN TYLER 03/27/17 Carvedilol* (Carvedilol*) 3.125 Mg Tablet, 3.125 MG PO BID for 30 Days, TAB 3 Refills Prov:MADAN TYLER 03/27/17 Ticagrelor* (Brilinta*) 90 Mg Tablet, 90 MG PO BID for 30 Days, TAB 11 Refills Prov:MADAN TYLER 03/27/17 Reported Medications Hydroxyzine Hcl* (Hydroxyzine Hcl*) 10 Mg Tablet, 10 MG PO QHS Y for ITCHING, # 30 TAB 03/25/17 Cholecalciferol* (Vitamin D3*) 1,000 Unit Tablet, 1000 UNIT PO DAILY, TAB 03/25/17 Benazepril Hcl* (Benazepril Hcl*) 20 Mg Tablet, 20 MG PO DAILY, #30 TAB 03/25/17 Levothyroxine Sodium* (Levothyroxine Sodium*) 88 Mcg Tablet, 88 MCG PO BEFORE BREAKFAST, #30 TAB 03/25/17 Allergies Allergies: Coded Allergies: ibuprofen (Verified Allergy, Unknown, 03/25/17) PMhx/Soc Anesthesia Reaction: No Hx Neurological Disorder: No Hx Respiratory Disorders: Yes (sob with exertion) Hx Cardiac Disorders: Yes (HTN ) Hx Psychiatric Problems: No Hx Miscellaneous Medical Probl: No Hx Alcohol Use: No Hx Substance Use: No Hx Tobacco Use: Yes Smoking Status: Never smoker Physical Exam Vitals Vital Signs Date Time Temp Pulse Resp B/P Pulse Ox O2 Delivery O2 Flow Rate FiO2 04/12/17 12:54 99.5 96 18 139/87 98 Physical Exam Const: NAD Head: Atraumatic Eyes: Normal Conjunctiva ENT: Normal External Ears, Nose and Mouth. Uvula midline. No lip swelling no evidence of angioedema Neck: Full range of motion..~ No meningismus. Resp: Clear to auscultation bilaterally Cardio: Regular rate and rhythm, no murmurs Abd: Soft, non tender, non distended. Normal bowel sounds Skin: Diffuse urticaria over bilateral arms, chest, abdomen, back and bilateral legs. Back: No midline or flank tenderness Ext: No cyanosis, or edema Neur: Awake and alert Psych: Normal Mood and Affect Results 24 hrs Current Medications Medications (Trade) Dose Ordered Sig/Aida Route PRN Reason Start Time Stop Time Status Last Admin Dose Admin Methylprednisolone Sodium Succinate (Solu-Medrol) 125 mg ONCE ONCE IM 04/12/17 14:30 04/12/17 14:31 DC 04/12/17 14:35 Diphenhydramine HCl (Benadryl) 25 mg ONCE ONCE IM 04/12/17 14:30 04/12/17 14:31 DC 04/12/17 14:35 Famotidine (Pepcid) 20 mg ONCE ONCE PO 04/12/17 14:30 04/12/17 14:31 DC 04/12/17 14:34 Procedures/MDM This a 61-year-old female who presents the emergency department today for rash all over her body for the past 2 days. Patient was seen here on January 25, 2017 and admitted for an end STEMI. Patient was discharged home with several medications for her heart. She did follow up with her nonfarm animal caretaker yesterday and was told that she may be having an allergic reaction to some of her medications and those were stopped. Her medications were switched to clopidogrel, aspirin and carvedilol addition to the benazepril, levothyroxine and hydroxyzine that she has taken in the past. Patient is afebrile and otherwise well-appearing. Her vital signs are stable. She denies any shortness of breath, difficulty breathing. Patient has no lip swelling on physical exam I have low suspicion for anaphylaxis or angioedema. She does have diffuse urticaria. I did have Dr. Fournier see the patient and he is in agreement that it is allergic reaction. Low suspicion for sepsis, severe acute bacterial infection, meningitis, viral exanthem, shingles, SJS. patient was given IM Benadryl, Solu-Medrol and oral Pepcid here in the emergency department. She reported that the itching had stopped and her symptoms improved. Symptoms at this time is consistent with allergic reaction and urticaria uncertain etiology at this time. Patient was discharged home with a prescription for Benadryl, Pepcid and a short course of steroids. At this time the patient is stable for discharge and outpatient management. Patient should follow up with their PCP in the next 1-2 days. They may return to the emergency department sooner for any persistent or worsening of symptoms. Patient understood and agreed with the plan. Departure Diagnosis: Primary Impression: Allergic reaction Encounter type: initial encounter Qualified Code: T78.40XA - Allergic reaction, initial encounter Condition: Fair Patient Instructions: First Aid: Allergic Reactions Additional Instructions: Llame al doctor MAANA y romina travis TAVON PARA DENTRO DE 1-2 DELA CRUZ.Dgale a la secretaria que nosotros le instruimos hacer esta tavon.Avise o llame si ayala condicin se empeora antes de la tavon. Regresa aqui si peor o no mejor. Return for any worsening of symptoms, shortness of breath, difficulty breathing lip or face swelling Take all medications as prescribed ROZINA ARTEAGA PA-C 23, 2017 15:26
== END 2017-04-12 15:24 | disposition home or self-care (01) ==
LOC: FTE 12:53
DX: R21 Rash and other nonspecific skin eruption (principal); I10 Essential (primary) hypertension; Z79.82 Long term (current) use of aspirin; Z87.891 Personal history of nicotine dependence
CPT/HCPCS: 96372; 99284; J1200; J2930